=== PATIENT | female | born 1975 | race Caucasian/White ===

== ENCOUNTER 2017-08-11 14:25 | Observation (INO) ==
[~2017-08-11 14:25] MED LIST: KETAMINE 10 MG/ML ML IV PRN; MIDAZOLAM 2 MG/2 ML VIAL IV SCH; PROPOFOL 200 MG/20 ML VIAL IV SCH
[2017-08-11] MEDS ORDERED: LIDOCAINE JEL 2% 1 TUBE 30GM TOPICAL ONE (15:27)
[2017-08-11] MEDS ORDERED: MIDAZOLAM 2 MG/2 ML VIAL IV ONE ×2 (15:34→16:15)
[2017-08-11] MEDS ORDERED: HYDROmorphone 2 MG/ML SYRINGE IV ONE ×2 (15:35→16:05)
[2017-08-11] MEDS ORDERED: HYDROmorphone 2 MG/ML SYRINGE ONE (15:59)
[2017-08-11] MEDS ORDERED: MIDAZOLAM 5 MG/5 ML VIAL IV ONE (16:06)
[2017-08-11] MEDS ORDERED: MIDAZOLAM 2 MG/2 ML VIAL ONE (16:14)
[2017-08-11] MEDS ORDERED: NALOXONE HCL 0.4 MG/ML VIAL ONE ×2 (16:24→16:28)
[2017-08-11] MEDS ORDERED: ONDANSETRON 4 MG/2 ML VIAL IV ONE (16:29)
[2017-08-11] MEDS ORDERED: NALOXONE HCL 0.4 MG/ML VIAL IV ONE (16:30)
[2017-08-11] MEDS ORDERED: ONDANSETRON 4 MG/2 ML VIAL ONE (16:35)
[2017-08-11 17:11] LABS: Basophils # (Auto) 0 K/mcL (0.0-0.3); Basophils % (Auto) 0.2 % (0.0-2.0); Eosinophils # (Auto) 0 K/mcL (0.0-0.7); Eosinophils % (Auto) 0 % (0.0-7.0); Granulocytes % (Auto) 55.2 % (38.0-78.0); Lymphocytes % (Auto) 39.9 % (15.5-49.0); Mean Cell Volume 90.7 fL (80.0-100.0); Mean Corpuscular HGB Conc 33.9 g/dL (31.0-36.0); Mean Corpuscular Hemoglobin 30.8 pg (26.0-34.0); Monocytes # (Auto) 0.5 K/mcL (0.1-0.9); Monocytes % (Auto) 4.7 % (1.0-12.0); Platelet Count 209 K/mcL (140-440); RBC 4.63 M/mcL (4.00-5.20); Red Cell Distribution Width 13.9 % (11.5-14.5)
[2017-08-11 17:27] LABS: Creatine Kinase 68 IU/L (24-170); Creatine Kinase MB < 1.0 ng/ml (0-2.9); Myoglobin 35 ng/ml (25-58)
--- NOTE | 2017-08-11 17:28 | XRay Report ---
CLINICAL INFORMATION: Cardiorespiratory arrest COMPARISON: 01/10/2017 FINDINGS:The heart size, mediastinum and pulmonary vessels are unremarkable. The lungs are clear. There are no effusions. The bones and soft tissues are within normal limits. IMPRESSION: Normal chest. Interpreted and Authenticated by: Darien Haynes 08/11/17
[2017-08-11] MEDS ORDERED: METOCLOPRAMIDE 10 MG/2 ML VIAL IV ONE (17:30)
[2017-08-11] MEDS ORDERED: KETOROLAC 30 MG/ML VIAL IV PRN ×2 (17:32→19:26)
--- NOTE | 2017-08-11 17:52 | Internal Med History&Physical ---
Medical - H&P: HPI Patient information: Note initiated : 08/11/17 at 5:47 pm Patient: Heavenly Ken 42 y/o F admitted for respiratory depression after anesthesia. History of present illness: Ms. Ken is a 42 year old female with a complicated GI history, including childhood liver cancer, status post chemotherapy and radiation. She now has chronic diarrhea, and recently developed an anal fissure which was very painful. She underwent an outpatient colonoscopy today, with fissure dilation and bowel biopsies. She had significant pain both during and after the procedure, and received multiple doses of Dilaudid, as well as ketamine and Midazolam. While in the recovery area, she was noted to have respiratory depression, with significant drop in O2 saturation. A rapid response/code was called, and she was fairly quickly resuscitated with oxygen and IV naloxone. She is now admitted for continued monitoring of her respiratory status, as well as continued attempts to keep her pain controlled. She has had some intermittent nausea, which is usually caused by the pain meds. She says she does not tolerate narcotics very well. Zofran was not especially helpful for her nausea, so she was given Reglan, which did seem to help. Otherwise, she is not currently experiencing fever or chills, headaches or dizziness, chest pain or shortness of breath. She has mild chronic abdominal discomfort. She has passed some gas this evening, which was also uncomfortable. She did have some urine retention in the recovery room, and had an in and out cath done. Medical History Glaucoma (Acute) Hypertriglyceridemia (Acute) 05/15/16 discussed results of lab work, ways to improve each point, plan to check labs again in 3 months Viral bronchitis (Acute) Asthma (Chronic) Cancer (Chronic) Liver cancer as . No recurrence in 36 years. Diarrhea (Chronic) Herpes, genital (Chronic) Reactive airway disease (Chronic) 05/15/16 deteriorated. Plan to start Advair( she will call with dose she has at home) would like her to be on 250/50. 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 History of surgery of liver (Chronic) w/subsequent radiation and chemotherapy. History of vaginal hysterectomy (Chronic) for Dr. Jeff SHOEMAKER. path normal. ovaries present Hx of tonsillectomy (Chronic) Medication List acyclovir 400 mg PO BID fexofenadine (Bonny Allergy) 360 mg PO QDAY fluticasone 50 mcg/actuation 1 spray NS DAILY fluticasone furoate 200 mcg/actuation (Arnuity Ellipta) 200 mcg Inhalation QDAY tiotropium-olodaterol 2.5-2.5 mcg/actuation (Stiolto Respimat) 2 inhalations Inhalation QDAY Allergies/Adverse Reactions codeine Adverse Reaction - Nausea Family history: Adopted. Social History household members: spouse, other smoking status: Never smoker alcohol intake frequency: a few times a month substance use type: does not use Medical - H&P: Meds Home Medications Medication Instructions Recorded Confirmed Type Fluticasone Propionate [Flonase] 1 spray NS DAILY 05/31/16 06/06/17 History fexofenadine 180 mg tablet 360 mg PO QDAY tab 09/13/16 06/06/17 History fluticasone furoate 200 200 mcg INHALATION QDAY 10/21/16 06/06/17 History mcg/actuation blister powder for inhalation tiotropium 2.5 mcg-olodaterol 2.5 2 inh INHALATION QDAY 10/21/16 06/06/17 History mcg/actuation mist for inhalation acyclovir 400 mg tablet 400 mg PO BID #60 tab 07/02/17 Rx Allergies Allergy/AdvReac Type Severity Reaction Status Date / Time codeine AdvReac Severe Nausea Verified 06/06/17 13:24 Medical - H&P: Exam - Constitutional Vitals: Temp Pulse Resp BP Pulse Ox 97.9 F 73 17 134/67 99 08/11/17 15:30 08/11/17 15:30 08/11/17 15:30 08/11/17 15:30 08/11/17 15:30 On exam, she is a well-developed well-nourished female who appears quite fatigued. She is otherwise awake and alert, calm and cooperative. Head: Normocephalic, atraumatic. Eyes: PERRLA, EOMI, anicteric. Ears: TMs and canals are clear. Pharynx: Is clear. Mucosa appears normal. Teeth are in good repair. Neck: Is supple, without lymphadenopathy, JVD, thyromegaly, bruits. Cardiac exam: Shows regular rate and rhythm, with normal S1 and S2, without murmurs, rubs, gallops. Lungs: Are clear to auscultation, without rales, rhonchi, wheezes. Abdomen: Is soft, but she has vague diffuse tenderness, without guarding or rebound. Extremities: Show no cyanosis, clubbing, edema. Neurologic exam: Is grossly nonfocal Medical - H&P: Reslt - Labs CBC & Chem 7: 08/11/17 16:27 Labs: Short CBC 08/11/17 Range/Units 16:27 WBC 10.1 (4.5-11.0) K/mcL Hgb 14.3 (12.0-15.0) g/dL Hct 42.0 (36.0-48.0) % Plt Count 209 (140-440) K/mcL Cardiac Enzymes 08/11/17 08/11/17 Range/Units 16:27 16:27 Total Creatine Kinase 68 (24-170) IU/L CK-MB (CK-2) < 1.0 (0-2.9) ng/ml Troponin T < 0.01 (0-0.03) ng/ml Chemistry panel: Normal. Blood gas: PH 7.52, CO2 35, PO2 169, bicarb 28, 100% saturation, on 100% oxygen via mask. Chest x-ray: Normal. Medical - H&P: A/P (1) Narcotic-induced respiratory depression Current visit: Yes Status: Acute (2) Chronic rectal fissure Current visit: Yes Status: Acute (3) Reactive airway disease Current visit: No Status: Chronic - Narrative A/P Narrative: #1. Pulmonary. EDUARDA CONTRERAS was called on this patient earlier today, after her noticed that she did not seem to be breathing while in the recovery room, following her GI procedure today. Staff there noted that the patient had received medazepam and several doses of Dilaudid due to significant pain after her procedure. She was given oxygen via bag mask, and then given naloxone. She aroused fairly quickly. -Admit for observation, until we are sure her respiratory status is back to normal. Monitor on continuous pulse oximetry. -Judicious pain meds, as needed. -B and O suppositories as needed for rectal spasms. -Topical diltiazem cream as needed -Topical lidocaine jelly as needed. #2. GI. Patient presents with ongoing profuse diarrhea, in the setting of previous radiation colitis. GI is now suspicious of collagenous colitis. Biopsies are pending. Patient also has the rectal fissure, which was dilated today. #3. CODE STATUS: Full code. 4. DVT prophylaxis: The patient should be fully ambulatory by the morning. 5. History of asthma. As needed albuterol.
[2017-08-11] MEDS ORDERED: METOCLOPRAMIDE 10 MG/2 ML VIAL IV SCH (18:00)
[2017-08-11] MEDS ORDERED: LACTATED RINGERS 1,000 ML IV SCH (18:15)
[2017-08-11] MEDS: LACTATED RINGERS 1,000 ML IV SCH (19:05)
[2017-08-11] MEDS ORDERED: ONDANSETRON 4 MG/2 ML VIAL IV PRN (19:26)
[2017-08-11] MEDS ORDERED: NALOXONE HCL 0.4 MG/ML VIAL IV PRN (19:26)
[2017-08-11] MEDS ORDERED: ACETAMINOPHEN 325 MG TABLET PO PRN (19:26)
[2017-08-11] MEDS ORDERED: IBUPROFEN 600 MG TABLET PO PRN (19:26)
[2017-08-11] MEDS ORDERED: OPIUM/BELLADONNA ALKALOIDS 60 MG SUPP.RECT PR PRN (19:26)
[2017-08-11] MEDS ORDERED: ALBUTEROL SULFATE 2.5 MG/3 ML NEBULIZER NEB PRN (19:26)
[2017-08-11] MEDS ORDERED: CALCIUM CARBONATE 500 MG TAB.CHEW CHEWED PRN (19:26)
[2017-08-11] MEDS ORDERED: oxyCODONE/APAP 5/325MG TABLET PO PRN (19:26)
[2017-08-11] MEDS ORDERED: MAGNESIUM HYDROXIDE 30 ML ORAL.SUSP PO PRN (19:26)
[2017-08-11] MEDS: LIDOCAINE JEL 2% 1 TUBE 30GM TOPICAL SCH (20:24)
[2017-08-11] MEDS ORDERED: PATIENTS OWN MEDICATION 1 DOSE MISCELL TOPICAL SCH (21:00)
[2017-08-11] MEDS: BUDESONIDE 0.5 MG/2 ML AMPUL.NEB NEB SCH (21:20)
[2017-08-11] MEDS: DILTIAZEM 2% TOPICAL SCH (22:17)
[2017-08-11] MEDS: 0.9 % SODIUM CHLORIDE 10 ML SYRINGE IV SCH (22:18)
[2017-08-12] MEDS: LIDOCAINE JEL 2% 1 TUBE 30GM TOPICAL SCH ×2 (00:58→05:18)
[2017-08-12] MEDS: LACTATED RINGERS 1,000 ML IV SCH (02:29)
[2017-08-12] MEDS: 0.9 % SODIUM CHLORIDE 10 ML SYRINGE IV SCH (05:18)
[2017-08-12 06:07] LABS: Mean Corpuscular HGB Conc 33.7 g/dL (31.0-36.0); Mean Corpuscular Hemoglobin 30.7 pg (26.0-34.0); Platelet Count 150 K/mcL (140-440); RBC 3.97 M/mcL (4.00-5.20); Red Cell Distribution Width 13.8 % (11.5-14.5)
[2017-08-12 06:55] LABS: Band Neutrophils % 1 % (0-10); Basophils % (Manual) 1 % (0-2); Eosinophils % (Manual) 1 % (0-7); Lymphocytes % 17 % (15-49); Monocytes % (Manual) 4 % (1-12); Platelet Estimate NORMAL (NORMAL); RBC Morphology NORMAL (NORMAL); Segmented Neutrophils % 77 % (38-78)
[2017-08-12 07:03] LABS: ALT/SGPT 32 U/l (0-40); Albumin 4.1 gm/dL (3.2-5.2); Albumin/Globulin Ratio 1.9 (1.0-2.3); Alkaline Phosphatase 53 U/L (39-117); Bilirubin,Direct < 0.2 mg/dL (0.0-0.3); Blood Urea Nitrogen 11 mg/dl (6-20); Gamma Glutamyl Transpeptidase 69 U/L (5-36); Magnesium 2.5 mg/dL (1.6-2.5); Uric Acid 6.2 mg/dL (2.5-8.0)
[2017-08-12] MEDS: BUDESONIDE 0.5 MG/2 ML AMPUL.NEB NEB SCH (11:02)
[2017-08-12] MEDS: DILTIAZEM 2% TOPICAL SCH (11:41)
--- NOTE | 2017-08-12 13:03 | Surgical Pathology Report ---
HISTOLOGY SPECIMEN MICROSCOPIC DIAGNOSIS SPECIMEN A - SMALL BOWEL, TERMINAL ILEUM, BIOPSY: -- NO DIAGNOSTIC ALTERATIONS. -- NO ACUTE ENTERITIS, GRANULOMAS OR DYSPLASIA IDENTIFIED. SPECIMEN B - COLON, RANDOM, BIOPSY: -- NO DIAGNOSTIC ALTERATIONS. -- NO ACTIVE COLITIS, MICROSCOPIC COLITIS OR DYSPLASIA IDENTIFIED. SPECIMEN C - COLON, TRANSVERSE, POLYPECTOMY: -- HYPERPLASTIC POLYP. (RLF:djf) CLINICAL HISTORY Diarrhea; abdominal pain. PROCEDURAL IMPRESSION (?) Microscopic colitis; polyp; anal fissure. GROSS DESCRIPTION Specimen A: Received in formalin labeled terminal ileum biopsy, are four owens tissue fragments 0.3 to 0.6 cm. Entirely submitted in one cassette. Specimen B: Received in formalin labeled random colon biopsy, are multiple pink-owens tissue fragments 0.4 to 1.6 cm. Entirely submitted in one cassette. Specimen C: Received in formalin labeled transverse colon polyp, are two pink-owens tissue fragments 0.5 cm each. Entirely submitted in one cassette. (SCB:adj) Electronically Signed by: Valentina Paulino M.D.
--- NOTE | 2017-08-12 17:43 | Colonoscopy Procedure Note ---
Colonoscopy Procedure Notes - Procedure Information Patient information: Note initiated : 08/12/17 at 10:14 am Service Date: 08/11/17 Patient: Heavenly Ken 42 y/o F admitted on 08/11/17 for Colonoscopy. Pre-op diagnosis general: Diarrhea. Rectal pain. Post-op diagnosis general: Diarrhea. Query microscopic colitis. Anal fissure. Colonic polyps. Procedure narrative: The procedure, alternatives and risks were discussed with the patient and the patient's questions were answered. With intravenous sedation, the Olympus colonoscope was introduced into the rectum and advanced to the cecum. Ileocecal valve was identified, and intubated. Special effort was made to examine as much of the terminal ileum as possible. At least 30 to 40 cm of the terminal ileum were examined and were normal. Biopsy was taken from the ileal mucosa for histological examination. Random colon biopsies were taken throughout the colon to assess for microscopic colitis. Colonic polyps were seen in the transverse colon. The polyps were removed with a snare. They were retrieved for histological examination. Anal fissure was seen. The anal canal was in tight spasm and exquisitely tender. After sedation was administered, the anal sphincter was digitally dilated. The colon otherwise appeared normal. Assessment: Diarrhea. Query microscopic colitis. Anal fissure. History of radiation; radiation enteritis. Colonic polyps. Following the procedure, the patient complained of severe rectal pain and was given 2mg Dilaudid IV with 2mg of Versed.
--- NOTE | 2017-08-12 17:44 | Discharge Summary ---
Medical - DS: Prov Patient information: Note initiated : 08/12/17 at 10:31 am Patient: Heavenly Ken 42 y/o F admitted on 08/11/17 for respiratory depression after colonoscopy. Date of admission: 08/11/17 19:00 Discharge date: 08/12/17 Primary care physician: Romero Ba GI doctor, Dr. Magan Burch Admitting clinician: Erica Mathews Consults: Dr. Magan Burch, GI Attending physician on discharge: Erica Mathews Medical - DS: Meds - Discharge Medications Prescriptions: Ibuprofen 800 mg PO TIDP PRN #30 tablet PRN Reason: Pain Opium/Belladonna Alkaloids [B & O] 30 mg VA Q4HP PRN #10 PRN Reason: Bladder Spasms Active and Home Medications: Discharge medications: Lidocaine jelly, apply to the anal canal, as needed pain every 6 hours Belladonna suppository, per rectum, as needed rectal spasms every 4 hours Diltiazem cream, apply to the rectum, as needed spasms Tylenol 650 mg every 6 hours as needed pain Ibuprofen 800 mg p.o. 3 times daily as needed rectal pain Tums every 4 hours as needed Arnuity Ellipta inhaler 200 mcg daily (fluticasone) Stiolto Respimat Restasis tiotropium-olodaterol) 2.5/2.52 inhalations daily Peyton acyclovir 400 mg p.o. twice daily Bonny 360 mg daily Flonase 1 spray per nostrils daily Previous home Medications Fluticasone Propionate [Flonase] 1 spray NS DAILY 05/31/16 [History Confirmed Last Taken Unknown] fexofenadine 180 mg tablet 360 mg PO QDAY tab 09/13/16 [History Confirmed 06/06 Last Taken Unknown] fluticasone furoate 200 mcg/actuation blister powder for inhalation 200 mcg INHALATION QDAY 10/21/16 [History Confirmed 06/06/17 Last Taken Unknown] tiotropium 2.5 mcg-olodaterol 2.5 mcg/actuation mist for inhalation 2 inh INHALATION QDAY 10/21/16 [History Confirmed 06/06/17 Last Taken Unknown] acyclovir 400 mg tablet 400 mg PO BID #60 tab 07/02/17 [Rx Last Taken Unknown] Medical - DS: Hosp Hospital course: Mr. Ken is a 42 year old F August 11, 2017: History of present illness: Ms. Ken is a 42 year old female with a complicated GI history, including childhood liver cancer, status post chemotherapy and radiation. She now has chronic diarrhea, and recently developed an anal fissure which was very painful. She underwent an outpatient colonoscopy today, with fissure dilation and bowel biopsies. She had significant pain both during and after the procedure, and received multiple doses of Dilaudid, as well as ketamine and Midazolam. While in the recovery area, she was noted to have respiratory depression, with significant drop in O2 saturation. A rapid response/code was called, and she was fairly quickly resuscitated with oxygen and IV naloxone. She is now admitted for continued monitoring of her respiratory status, as well as continued attempts to keep her pain controlled. She has had some intermittent nausea, which is usually caused by the pain meds. She says she does not tolerate narcotics very well. Zofran was not especially helpful for her nausea, so she was given Reglan, which did seem to help. Otherwise, she is not currently experiencing fever or chills, headaches or dizziness, chest pain or shortness of breath. She has mild chronic abdominal discomfort. She has passed some gas this evening, which was also uncomfortable. She did have some urine retention in the recovery room, and had an in and out cath done. August 11, colonoscopy note: Pre-op diagnosis general: Diarrhea. Rectal pain. Post-op diagnosis general: Diarrhea. Query microscopic colitis. Anal fissure. Colonic polyps. Procedure narrative: Special effort was made to examine as much of the terminal ileum as possible. At least 30 to 40 cm of the terminal ileum were examined and were normal. Biopsy was taken from the ileal mucosa for histological examination. Random colon biopsies were taken throughout the colon to assess for microscopic colitis. Colonic polyps were seen in the transverse colon. The polyps were removed with a snare. They were retrieved for histological examination. Anal fissure was seen. The anal canal was in tight spasm and exquisitely tender. After sedation was administered, the anal sphincter was digitally dilated. The colon otherwise appeared normal. Assessment: Diarrhea. Query microscopic colitis. Anal fissure. History of radiation; radiation enteritis. Colonic polyps. Following the procedure, the patient complained of severe rectal pain and was given 2mg Dilaudid IV with 2mg of Versed. August 12: Hospital course: The patient was admitted last evening for close monitoring, as noted above. She did fine overnight, once her nausea settled down. She has not yet had a bowel movement. She had rectal pain last evening, which resolved after IV Toradol. Today, she says she is feeling much better. Nausea has resolved. She has only minor abdominal discomfort. Otherwise, she denies fever chills, chest pain or shortness of breath, abdominal pain, nausea or vomiting, diarrhea, dysuria. Postvoid residual scans of her bladder were normal. Exam: Today, patient is awake and alert, and in no acute distress. Vital signs are within normal limits. Neck is supple without lymphadenopathy or JVD. Cardiac exam shows regular rate and rhythm. Lungs are clear to auscultation. Abdomen is soft and nontender. Extremities show no edema. Assessment and plan: #1. Pulmonary. EDUARDA CONTRERAS was called on this patient earlier yesterday after she developed respiratory depression after receiving IV pain meds and anxiolytics. O2 saturation improved rapidly after being given supplemental oxygen and naloxone. She has done well overnight. O2 saturations remained normal overnight. #2. GI. Patient presents with ongoing profuse diarrhea, in the setting of previous radiation colitis. GI is now suspicious of collagenous colitis. Biopsies are pending. Patient also has the rectal fissure, which was dilated yesterday. -Judicious pain meds, as needed. -B and O suppositories as needed for rectal spasms. -Topical diltiazem cream as needed -Topical lidocaine jelly as needed. #3. CODE STATUS: Full code. 4. DVT prophylaxis: The patient is fully ambulatory . 5. History of asthma. As needed albuterol. Resume home meds. Resume supplemental vitamin D and B12 for reported history of deficiency. Patient will return home with her today. She will follow-up with Dr. Burch as scheduled. Discharge diagnosis: Narcotic associated respiratory depression, resolved. - Time Spent with Patient Total time spent providing and/or coordinating discharge services: Less than 30 minutes Medical - DS: Exam - Constitutional Vitals: Vital Signs Temp Pulse Pulse Resp BP BP Pulse Ox 08/12/17 08:00 98.1 F 12 107/72 96 08/12/17 07:49 78 95 08/12/17 05:20 97 08/12/17 04:00 98.2 F 71 12 97/61 98 08/11/17 23:35 99 08/11/17 22:38 97.0 F 83 12 123/80 99 08/11/17 21:21 99 08/11/17 20:00 96.8 F L 97 H 12 121/68 99 08/11/17 19:26 98 08/11/17 19:05 96.8 F L 97 H 12 121/68 99 08/11/17 19:00 97.9 F 88 16 122/67 98 08/11/17 17:00 89 16 128/68 99 08/11/17 16:15 97.9 F 75 17 134/67 97 08/11/17 16:00 97.9 F 73 17 132/65 98 08/11/17 15:30 97.9 F 73 17 134/67 99 08/11/17 15:20 82 17 113/62 99 08/11/17 14:53 97.9 F 73 16 124/79 98 08/11/17 14:43 97.9 F 73 16 124/79 98 Intake and Output 08/11/17 08/12/17 08/12/17 21:59 05:59 13:59 Intake Total 60 / 60 745 / 745 Output Total 780 / 780 Balance 60 / 60 -35 / -35 Intake: IV 555 / 555 Lactated Ringers 1,000 ml 555 / 555 @ 75 mls/hr IV .[id number] [facility] Rx#:[id number] Oral 60 / 60 190 / 190 Output: Void Amount 750 / 750 Emesis Other: # Voids 3 1 # Bowel Movements 1 Weight 143 lb Medical - DS: Data Labs on day of discharge: Labs from last 24 hours 08/12/17 08/12/17 08/11/17 04:19 04:19 16:27 WBC 9.2 RBC 3.97 L Hgb 12.2 Hct 36.1 POC Hct MCV 91.0 MCH 30.7 MCHC 33.7 RDW 13.8 Plt Count 150 MPV 8.7 Gran % Lymph % (Auto) [place] % (Auto) Eos % (Auto) Baso % (Auto) Gran # Lymph # (Auto) [place] # (Auto) Eos # (Auto) Baso # (Auto) Total Counted 200 Seg Neutrophils % 77 Band Neutrophils % 1 Lymphocytes % 17 Monocytes % (Manual) 4 Eosinophils % (Manual) 1 Basophils % (Manual) 1 Reactive Lymphocytes 1 Platelet Estimate Normal RBC Morphology Normal POC Sodium Sodium 138 POC Potassium Potassium 4.9 POC Chloride Chloride 102 Carbon Dioxide 27 POC Total CO2 Anion Gap 9.0 POC BUN BUN 11 Creatinine 0.9 POC Creatinine GFR Calculation 78 Glucose 106 H POC Glucose Uric Acid 6.2 Calcium 9.5 POC WB Ioniz Calcium Phosphorus 3.9 Magnesium 2.5 Total Bilirubin 0.5 Direct Bilirubin < 0.2 GGT 69 H AST 24 ALT 32 Alkaline Phosphatase 53 Lactate Dehydrogenase 152 Total Creatine Kinase CK-MB (CK-2) Myoglobin Troponin T < 0.01 Total Protein 6.3 Albumin 4.1 Globulin 2.2 Albumin/Globulin Ratio 1.9 Triglycerides 156 H 08/11/17 08/11/17 16:27 16:27 WBC 10.1 RBC 4.63 Hgb 14.3 Hct 42.0 POC Hct 44.0 MCV 90.7 MCH 30.8 MCHC 33.9 RDW 13.9 Plt Count 209 MPV 8.5 Gran % 55.2 Lymph % (Auto) 39.9 [place] % (Auto) 4.7 Eos % (Auto) 0 Baso % (Auto) 0.2 Gran # 5.6 Lymph # (Auto) 4.0 [place] # (Auto) 0.5 Eos # (Auto) 0 Baso # (Auto) 0 Total Counted Seg Neutrophils % Band Neutrophils % Lymphocytes % Monocytes % (Manual) Eosinophils % (Manual) Basophils % (Manual) Reactive Lymphocytes Platelet Estimate RBC Morphology POC Sodium 140 Sodium POC Potassium 3.4 Potassium POC Chloride 101 Chloride Carbon Dioxide POC Total CO2 28 Anion Gap POC BUN 11 BUN Creatinine POC Creatinine 1.0 GFR Calculation Glucose POC Glucose 139 H Uric Acid Calcium POC WB Ioniz Calcium 1.25 Phosphorus Magnesium Total Bilirubin Direct Bilirubin GGT AST ALT Alkaline Phosphatase Lactate Dehydrogenase Total Creatine Kinase 68 CK-MB (CK-2) < 1.0 Myoglobin 35 Troponin T Total Protein Albumin Globulin Albumin/Globulin Ratio Triglycerides Chemistry panel: Normal. Blood gas: PH 7.52, CO2 35, PO2 169, bicarb 28, 100% saturation, on 100% oxygen via mask. Chest x-ray: Normal. EKG showed sinus tachycardia at a rate of 103, without obvious acute ST-T changes. Medical - DS: A/P - Patient/Caregiver Discharge Instructions Activity: increase activity as tolerated Diet: Low Fiber (Resume previous low residue diet.) Additional Instructions: 1. Rectal pain due to fissure. Continue to follow the diet prescribed by Dr. Burch. Continue topical diltiazem, lidocaine, B and O suppositories, as needed for pain and/or spasm. Prescriptions: Ibuprofen 800 mg PO TIDP PRN #30 tablet PRN Reason: Pain Opium/Belladonna Alkaloids [B & O] 30 mg VA Q4HP PRN #10 PRN Reason: Bladder Spasms - Problem Maintenance (1) Narcotic-induced respiratory depression Status: Acute (2) Chronic rectal fissure Status: Acute (3) Reactive airway disease Status: Chronic Qualifiers: Asthma severity: mild persistent - Follow up Plan Follow up with: Heavenly Arias ARNP [Nurse Practitioner] - 08/13/17 4:15 pm Disposition: Home, Self-Care Prognosis: Good Rehab Potential: Good I certify that the patient requires SNF services: No Overall status at discharge: patient is back to baseline Medical - DS: Qual - VTE Deep Vein Thrombosis/Pulmonary Embolism Present on Admission: No
== END 2017-08-12 12:25 | disposition home or self-care (01) ==
LOC: MEDSUR 14:25 → SSSU 14:25 → MEDSUR 19:00
PROVIDERS: ADMIT Internal Medicine; ATTEND Internal Medicine
PROC: COLONBX (2017-08-11 15:30)

== ENCOUNTER 2018-08-13 18:59 | Inpatient (IN) ==
[2018-08-13] MEDS ORDERED: LACTATED RINGERS 1,000 ML IV ONE (19:16)
[2018-08-13] MEDS ORDERED: ONDANSETRON 4 MG/2 ML VIAL IV ONE (19:20)
--- NOTE | 2018-08-13 19:22 | Emergency Department Note ---
Abdominal Pain HPI - General Chief Complaint: Abdominal Pain Stated Complaint: abdominal cramping Time Seen by Provider: 08/13/18 19:13 Source: patient Mode of arrival: ambulatory Limitations: no limitations - History of Present Illness HPI Narrative: This patient has had previous small bowel obstructions and feel like she might be starting to get another one. Since 2:00 she has been developing some abdominal discomfort and is not passing gas. Has not developed nausea yet. She had liver cancer and surgery at 8 weeks of age. She has had several small bowel obstructions in the past. - Related Data Home Medications Medication Instructions Recorded Confirmed Fluticasone Propionate [Flonase] 1 spray NS DAILY 05/31/16 08/14/18 fexofenadine 180 mg tablet 360 mg PO QDAY tab 09/13/16 08/14/18 fluticasone furoate 200 200 mcg INHALATION QDAY 10/21/16 08/14/18 mcg/actuation blister powder for inhalation tiotropium 2.5 mcg-olodaterol 2.5 2 inh INHALATION QDAY 10/21/16 08/14/18 mcg/actuation mist for inhalation cholecalciferol (vitamin D3) 5,000 5,000 unit PO QDAY 02/20/18 08/14/18 unit capsule rifaximin 200 mg tablet 200 mg PO TID 02/20/18 08/14/18 vitamin B complex tablet 1 tab PO QDAY 02/20/18 08/14/18 Previous Rx's Medication Instructions Recorded acyclovir 400 mg tablet 400 mg PO BID #60 tab 07/02/17 Acetaminophen [Tylenol] 650 mg PO Q6HP PRN tab 08/12/17 Calcium Carbonate [Tums] 1,000 mg CHEWED Q4HP PRN 08/12/17 Ibuprofen 800 mg PO TIDP PRN #30 tab 08/12/17 Opium/Belladonna Alkaloids [B & O] 30 mg [place] Q4HP PRN #10 08/12/17 Allergies Allergy/AdvReac Type Severity Reaction Status Date / Time codeine AdvReac Mild Nausea/Vomi Verified 08/14/18 06:11 ting Review of Systems All systems ED: reviewed and negative except as stated. Abdominal Pain PMH - Past Medical History Medical history: Reports: liver disease (Liver cancer at 8 weeks of age with abdominal surgery.), other (Previous small bowel obstructions.) - Social History Smoking status: Never smoker Alcohol use: Reports: Rarely Drug use: Reports: none Physical Exam Limitations: no limitations General appearance: alert Head: atraumatic Eye: Present: normal appearance ENT: normal exam Neck: Present: normal inspection Chest: Present: normal inspection Respiratory: Present: normal lung sounds bilaterally Cardiovascular: Present: regular rate, normal rhythm, normal heart sounds Abdominal: Present: soft, distention, tenderness, hyperactive bowel sounds. Absent: guarding, rebound, rigidity Neurological: Present: alert Psychiatric: Present: normal affect Skin: Present: warm, dry, intact Course Vital Signs Temperature 96.8 F L 08/13/18 18:59 Pulse Rate 105 H 08/13/18 18:59 Respiratory Rate 18 08/13/18 18:59 Blood Pressure 151/80 08/13/18 18:59 Pulse Oximetry (%) 99 08/13/18 18:59 Temperature 98 F 08/14/18 07:06 Pulse Rate 90 08/14/18 03:49 Respiratory Rate 16 08/14/18 07:06 Blood Pressure 142/87 08/14/18 07:06 Pulse Oximetry (%) 97 08/14/18 07:06 Abdominal Pain - MDM Narrative Medical decision making narrative: Patient CT scan is consistent with a partial small bowel obstruction. She will be admitted to the hospital by Dr. Westfall. - Lab Data Lab results reviewed: Yes I reviewed the patient's lab results. Result diagrams: 08/14/18 03:55 08/14/18 03:55 Lab Results 08/13/18 08/13/18 Range/Units 19:16 19:16 WBC 6.8 (4.5-11.0) K/mcL RBC 4.75 (4.00-5.20) M/mcL Hgb 14.5 (12.0-15.0) g/dL Hct 43.1 (36.0-48.0) % MCV 90.7 (80.0-100.0) fL MCH 30.6 (26.0-34.0) pg MCHC 33.7 (31.0-36.0) g/dL RDW 15.4 H (11.5-14.5) % Plt Count 201 (140-440) K/mcL MPV 8.3 (7.4-10.4) fL Gran % 69.1 (38.0-78.0) % Lymph % (Auto) 25.7 (15.5-49.0) % [place] % (Auto) 4.7 (1.0-12.0) % Eos % (Auto) 0 (0.0-7.0) % Baso % (Auto) 0.5 (0.0-2.0) % Gran # 4.7 (1.8-8.0) K/mcL Lymph # (Auto) 1.7 (1.5-4.8) K/mcL [place] # (Auto) 0.3 (0.1-0.9) K/mcL Eos # (Auto) 0 (0.0-0.7) K/mcL Baso # (Auto) 0 (0.0-0.3) K/mcL Sodium 140 (133-145) mmol/L Potassium 4.0 (3.3-5.1) mmol/L Chloride 98 (96-108) mmol/L Carbon Dioxide 28 (22-30) mmol/L Anion Gap 14.0 (8-16) BUN 13 (6-20) mg/dl Creatinine 1.1 (0.6-1.1) mg/dl GFR Calculation 61 Glucose 139 H (70-105) mg/dL Calcium 11.4 H (8.6-10.4) mg/dl Total Bilirubin 0.4 (0.0-1.0) mg/dL AST 33 (0-37) U/l ALT 46 H (0-40) U/l Alkaline Phosphatase 70 (39-117) U/L Total Protein 7.7 (5.9-8.4) gm/dL Albumin 4.9 (3.2-5.2) gm/dL Globulin 2.8 (2.2-3.7) gm/dL Albumin/Globulin Ratio 1.8 (1.0-2.3) - Radiology Data Radiology results reviewed: Yes I reviewed the patient's radiology results. Disposition Pt seen by ATMOSPHERIC SCIENTIST/PA only: No Clinical Impression: Small bowel obstruction Disposition: Xfer As Inpt ([facility]) Condition: Fair
[2018-08-13] MEDS: HYDROmorphone 2 MG/ML VIAL IV PRN ×5 (19:30→22:50)
[2018-08-13] MEDS ORDERED: PROMETHAZINE 25 MG/ML VIAL IV ONE (20:26)
[2018-08-13 20:28] LABS: Basophils # (Auto) 0 K/mcL (0.0-0.3); Basophils % (Auto) 0.5 % (0.0-2.0); Eosinophils # (Auto) 0 K/mcL (0.0-0.7); Eosinophils % (Auto) 0 % (0.0-7.0); Granulocytes % (Auto) 69.1 % (38.0-78.0); Lymphocytes # (Auto) 1.7 K/mcL (1.5-4.8); Lymphocytes % (Auto) 25.7 % (15.5-49.0); Mean Cell Volume 90.7 fL (80.0-100.0); Mean Corpuscular HGB Conc 33.7 g/dL (31.0-36.0); Mean Corpuscular Hemoglobin 30.6 pg (26.0-34.0); Monocytes # (Auto) 0.3 K/mcL (0.1-0.9); Monocytes % (Auto) 4.7 % (1.0-12.0); Platelet Count 201 K/mcL (140-440); RBC 4.75 M/mcL (4.00-5.20); Red Cell Distribution Width 15.4 % (11.5-14.5)
[2018-08-13 20:46] LABS: ALT/SGPT 46 U/l (0-40); Albumin 4.9 gm/dL (3.2-5.2); Albumin/Globulin Ratio 1.8 (1.0-2.3); Alkaline Phosphatase 70 U/L (39-117); Blood Urea Nitrogen 13 mg/dl (6-20)
[2018-08-13] MEDS ORDERED: ONDANSETRON 4 MG/2 ML VIAL ONE (22:23)
[2018-08-13] MEDS ORDERED: PROMETHAZINE 25 MG/ML VIAL ONE (22:47)
[2018-08-13] MEDS: LACTATED RINGERS 1,000 ML IV SCH (22:50)
[2018-08-14] MEDS ORDERED: PROMETHAZINE 25 MG/ML VIAL ONE (00:13)
[2018-08-14] MEDS ORDERED: METOCLOPRAMIDE 10 MG/2 ML VIAL ONE ×2 (00:23→05:25)
[2018-08-14] MEDS ORDERED: ONDANSETRON 4 MG/2 ML VIAL IV ONE (00:33)
[2018-08-14] MEDS ORDERED: PROMETHAZINE 25 MG/ML VIAL IV ONE (00:33)
[2018-08-14] MEDS ORDERED: IOPAMIDOL 100 ML BOTTLE IV ONE (00:45)
[2018-08-14] MEDS: METOCLOPRAMIDE 10 MG/2 ML VIAL IV SCH ×4 (01:07→18:09)
[2018-08-14] MEDS: LACTATED RINGERS 1,000 ML IV SCH ×4 (02:33→22:02)
[2018-08-14] MEDS: ONDANSETRON 4 MG/2 ML VIAL IV PRN ×3 (04:01→18:20)
[2018-08-14] MEDS ORDERED: HYDROmorphone 2 MG/ML VIAL ONE (04:05)
[2018-08-14 05:18] LABS: Basophils # (Auto) 0 K/mcL (0.0-0.3); Basophils % (Auto) 0.3 % (0.0-2.0); Eosinophils # (Auto) 0 K/mcL (0.0-0.7); Eosinophils % (Auto) 0 % (0.0-7.0); Granulocytes % (Auto) 84.3 % (38.0-78.0); Lymphocytes % (Auto) 11.5 % (15.5-49.0); Mean Cell Volume 90.8 fL (80.0-100.0); Mean Corpuscular HGB Conc 34.1 g/dL (31.0-36.0); Monocytes # (Auto) 0.3 K/mcL (0.1-0.9); Monocytes % (Auto) 3.9 % (1.0-12.0); Platelet Count 152 K/mcL (140-440); RBC 3.92 M/mcL (4.00-5.20); Red Cell Distribution Width 14.7 % (11.5-14.5)
--- NOTE | 2018-08-14 05:23 | XRay Report ---
CLINICAL INFORMATION: Abdominal pain COMPARISON: None. FINDINGS: The stool gas pattern is unremarkable. There is no free air, soft tissue mass, organomegaly or pathologic calcification. IMPRESSION: Normal abdomen Interpreted and Authenticated by: Darien Haynes 08/14/18
[2018-08-14 05:30] LABS: ALT/SGPT 37 U/l (0-40); Albumin 3.9 gm/dL (3.2-5.2); Albumin/Globulin Ratio 1.9 (1.0-2.3); Alkaline Phosphatase 54 U/L (39-117); Bilirubin,Direct < 0.2 mg/dL (0.0-0.3); Blood Urea Nitrogen 10 mg/dl (6-20); Gamma Glutamyl Transpeptidase 300 U/L (5-36); Uric Acid 5.6 mg/dL (2.5-8.0)
--- NOTE | 2018-08-14 05:58 | Cat Scan Report ---
CLINICAL INFORMATION: Abdominal pain and distention COMPARISON: 05/22/[address] TECHNIQUE: Following enteric contrast, 80 cc of Isovue-300 were injected intravenously, and 60 seconds later, 0.625 mm helical slices were obtained from the mid heart through the subtrochanteric regions. Following reconstruction, 2.5 mm sagittal, coronal and axial reformatted images were processed and reviewed at bone, lung and soft tissue windows. Five minutes later, 0.625 mm helical slices were obtained from the mid heart through the kidneys and viewed at soft tissue windows.The exam was performed using radiation dose optimization techniques including, but not limited to, automated exposure control, adjustment of the mA and/or kV according to patient size and use of iterative reconstruction technique. FINDINGS: Lung bases show no abnormality - no effusion. The visualized heart is normal. Images through the abdomen show moderate hepatomegaly with a vertical dimension of 17.5 cm at mid clavicular line. The liver has increased in size slowly since a 05/15/[address] That time, the vertical dimension was 16.5 cm. No focal hepatic lesions. Gallbladder is normal in size with a 5 mm stone layering dependently within the gallbladder. Intrahepatic and common bile ducts are normal caliber: CBD is 5 mm.10 mm simple cyst inferior pole left kidney again noted. Remaining kidneys, adrenal glands, spleen, pancreas and aorta including aortic branches are normal. Images through the pelvis show urinary bladder to be normal. Hysterectomy changes noted. Region of both ovaries are grossly normal. The right lower quadrant, there are multiple loops of mildly dilated distal jejunum with abrupt narrowing in the mid ileum ostensibly related to either a stricture or adhesions. The distal ileum is diminutive, but the colon is normal caliber with a normal amount of stool.. Findings compatible with mild partial small bowel obstruction. Small amount of mesenteric free fluid seen in the region of dilated small bowel. No free air or adenopathy. Bone windows show no osseous abnormality IMPRESSION: 1. Mild partial small bowel obstruction of the distal jejunum ostensibly related to adhesions or stricture. A small amount of adjacent mesenteric fluid suggests early third spacing. 2. Moderate hepatomegaly with diffuse fatty change. Liver has slowly enlarged since a [address] Findings are compatible with a chronic primary hepatocellular process such as hepatitis, developing cirrhosis etc. Consider: Ultrasound-guided biopsy 3. 5 mm stone in the gallbladder Interpreted and Authenticated by: Darien Haynes 08/14/18
[2018-08-14] MEDS: HYDROmorphone 2 MG/ML VIAL IV PRN ×5 (06:39→20:11)
[2018-08-14] MEDS: PROMETHAZINE 25 MG/ML VIAL IV PRN ×4 (06:42→20:11)
--- NOTE | 2018-08-14 07:08 | XRay Report ---
CLINICAL INFORMATION: NG placement. Partial small bowel obstruction COMPARISON: 08/13/2018 FINDINGS: NG tip is in the mid gastric body with the sidehole near the GE junction. Stool gas pattern is unremarkable - the small bowel obstruction pattern, seen on CT, is not evident on plain film. There is no free air, organomegaly, pathologic calcification or soft tissue mass. CT contrast fills the urinary bladder which is unremarkable IMPRESSION: NG sidehole to the GE junction. Suggest advancing tube 8 cm. Interpreted and Authenticated by: Darien Haynes 08/14/18
[2018-08-14] MEDS ORDERED: DIATRIZOATE MEGLU/DIATRIZO SOD 30 ML BOTTLE PO ONE (09:59)
--- NOTE | 2018-08-14 10:20 | XRay Report ---
CLINICAL INFORMATION: PARTIAL SMALL BOWEL OBSTRUCTION COMPARISON: Abdomen pelvic CT from 08/13/2018. TECHNIQUE: On forging press setter up film, approximately 300 cc of water-soluble contrast was administered through an indwelling NG tube and serial imaging was obtained of the abdomen and pelvis through 40 minutes. Spot compression views were also obtained at fluoroscopy by the radiologist FINDINGS: The stomach, duodenum, jejunum and ileum are normal in contour and caliber. No evidence of small bowel obstruction Small bowel transit time is approximately 30 minutes. IMPRESSION: Negative exam - normal small bowel follow-through. Small bowel transit time 30 minutes Interpreted and Authenticated by: Darien Haynes 08/14/18
--- NOTE | 2018-08-14 15:09 | General Surg History&Physical ---
History of Present Illness Patient information: Note initiated : 08/14/18 at 3:09 pm Service Date, if different from initiated Date: [] Patient: Heavenly Ken a 43 y/o F admitted on 08/13/18 for Abdominal Cramping /Small Bowel Obstruction. Chief Complaint: [Crampy abdominal pain] HPI: Ms. Ken is a 43 year old F admitted with severe abdominal pain and suspected partial small bowel obstruction. The patient has a history of neuroblastoma as an and underwent a partial liver resection followed by radiation and chemotherapy as an . Since that time, she has had intermittent management, crampy abdominal pain and distention and has been treated for partial small bowel obstructions. She has not been operated on for this since she was an . She normally has 6-12 liquid stools per day, but went over 24 hours without stool or gas passing. She also had abdominal distention. She had a CT of the abdomen which suggested either severe ileus or partial small bowel obstruction. She carries a diagnosis of radiation enteritis , which is thought to be the underlying causes of her problem. She has been followed closely by GI for this. Review of Systems - Constitutional no fever(s), no weight loss - Cardiovascular dyspnea on exertion - Respiratory dyspnea on exertion, wheezing - Gastrointestinal abdominal pain, cramping, diarrhea, nausea - Genitourinary Genitourinary: no difficulty urinating - Musculoskeletal myalgias, no arthralgias - Integumentary no bleeding lesions, no new lesions, no pruritus, no rash - Neurological no confusion, no dizziness, no tremor(s) - Psychiatric no anxiety, no depression - Endocrine no excessive sweating, no fatigue, no palpitations - Hematologic/Lymphatic no easy bleeding, no easy bruising, no lymphadenopathy - Allergic/Immunologic no tongue swelling, no throat swelling, no uticaria, no wheezing, no lip swelling Past History Past medical history: Neuroblastoma of infancy. Radiation enteritis. Reactive airway disease. Gallstone disease Past surgical history: Partial hepatectomy as an infant Vaginal hysterectomy. Reconstructive surgery, left hand Past family history: Patient is adopted and family unknown Past social history: Never smoker. Occasional alcohol. Denies drug use. Employed Medications and Allergies Home Medications Medication Instructions Recorded Confirmed Type Fluticasone Propionate [Flonase] 1 spray NS DAILY 05/31/16 08/14/18 History fexofenadine 180 mg tablet 360 mg PO QDAY tab 09/13/16 08/14/18 History fluticasone furoate 200 200 mcg INHALATION QDAY 10/21/16 08/14/18 History mcg/actuation blister powder for inhalation tiotropium 2.5 mcg-olodaterol 2.5 2 inh INHALATION QDAY 10/21/16 08/14/18 History mcg/actuation mist for inhalation acyclovir 400 mg tablet 400 mg PO BID #60 tab 07/02/17 08/14/18 Rx Acetaminophen [Tylenol] 650 mg PO Q6HP PRN tab 08/12/17 08/14/18 Rx Calcium Carbonate [Tums] 1,000 mg CHEWED Q4HP PRN 08/12/17 08/14/18 Rx Ibuprofen 800 mg PO TIDP PRN #30 tab 08/12/17 08/14/18 Rx Opium/Belladonna Alkaloids [B & O] 30 mg [place] Q4HP PRN #10 08/12/17 08/14/18 Rx cholecalciferol (vitamin D3) 5,000 5,000 unit PO QDAY 02/20/18 08/14/18 History unit capsule rifaximin 200 mg tablet 200 mg PO TID 02/20/18 08/14/18 History vitamin B complex tablet 1 tab PO QDAY 02/20/18 08/14/18 History Allergies Allergy/AdvReac Type Severity Reaction Status Date / Time codeine AdvReac Mild Nausea/Vomi Verified 08/14/18 06:11 ting Exam Temp Pulse Resp BP Pulse Ox 98 F 90 16 112/71 94 08/14/18 11:33 08/14/18 03:49 08/14/18 11:33 08/14/18 11:33 08/14/18 11:33 - General physical appearance well developed, well nourished, no distress - Eyes PERRL, normal ocular movement - ENT normal pinna, normal nares, normal mucosa, no hearing loss, no congestion - Head Head exam IM: Present: atraumatic, normocephalic - Neck no masses, no bruits, trachea midline, no lymphadectomy, no venous distension - Cardiovascular Cardiovascular exam IM: Present: normal rate and rhythm - Respiratory normal expansion, normal respiratory effort, clear to percussion, clear to auscultation - Abdomen Abdomen: Present: soft, tender (mild tenderness diffusely; active bowel sounds; moderate distention; healed surgical incisions), bowel sounds Hernia: Present: none - Genitourinary Present: normal external genitalia - Integumentary Present: no rash, no growths, no abnormal pigmentation - Neurologic Present: normal coordination, normal sensation - Musculoskeletal Present: normal gait, normal posture - Psychiatric Present: oriented to time, oriented to person, oriented to place, speech is normal, memory intact Assessment and Plan (1) Adynamic ileus Patient will have a small bowel follow-through completed . Nasogastric suction will be continued. Milk of magnesia will be given if small bowel follow-through is normal. Reglan 10 mg IV every 6 hours Status: Acute (2) Reactive airway disease Continue home medications Status: Chronic Qualifiers: Asthma severity: mild persistent (3) Partial small bowel obstruction Status: Resolved
[2018-08-14] MEDS: MAGNESIUM HYDROXIDE 30 ML ORAL.SUSP PO SCH ×3 (15:45→23:59)
[2018-08-14] MEDS ORDERED: BENZOCAINE 1 SPRAY BOTTLE TOPICAL ONE (18:31)
[2018-08-15] MEDS: HYDROmorphone 2 MG/ML VIAL IV PRN ×2 (00:05→02:34)
[2018-08-15] MEDS: ONDANSETRON 4 MG/2 ML VIAL IV PRN (00:05)
[2018-08-15] MEDS: METOCLOPRAMIDE 10 MG/2 ML VIAL IV SCH ×3 (00:35→12:21)
[2018-08-15] MEDS: PROMETHAZINE 25 MG/ML VIAL IV PRN (02:34)
[2018-08-15] MEDS: LACTATED RINGERS 1,000 ML IV SCH ×2 (04:21→10:31)
[2018-08-15] MEDS ORDERED: Tiotropium Br/Olodaterol Hcl [Stiolto Respimat] Inhaler INH SCH (09:00)
[2018-08-15] MEDS ORDERED: FLUTICASONE PROPIONATE SPRAY.NAS NS SCH (09:00)
--- NOTE | 2018-08-15 09:16 | XRay Report ---
HISTORY: Abdominal pain and cramping and small bowel obstruction FINDINGS: There is oral contrast within the colon following the small bowel follow-through performed yesterday. The colon is nondilated but there are multiple air-fluid levels. Stomach and small intestine are decompressed. There is no residual contrast in the small bowel. No free intra-abdominal air is present. IMPRESSION: Normal exam Interpreted and Authenticated by: Farooq Guevara 08/15/18
[2018-08-15] MEDS ORDERED: ACETAMINOPHEN 325 MG TABLET PO PRN (09:31)
--- NOTE | 2018-08-15 09:42 | General Surgery Progress Note ---
Surgical - Auxillary Note - Subjective Patient Information: Note initiated : 08/15/18 at 9:37 am Service Date, if different from initiated Date: [] Patient: Heavenly Ken 43 y/o F admitted on 08/13/18 for Abdominal Cramping /Small Bowel Obstruction. Chief Complaint: [] Ms. Ken is just out of the shower and states she is feeling better. NGT was removed early this morning after she started passing bowel movements. Patient states her abdominal pain is much improved and is wondering if she can go home. Denies nausea. On review of small bowel xray contrast seen to go through bowel and on this morning's xray contrast noted in distal colon and rectum. Vital Signs Vital Signs Temp Pulse Resp BP Pulse Ox 99 F 96 H 20 130/73 94 08/15/18 06:41 08/15/18 04:00 08/15/18 06:41 08/15/18 06:41 08/15/18 06:41 Period Temp Pulse Resp BP Sys/Mayer Pulse Ox Last 24 Hr 98 F-99 F 96-105 16-20 112-151/71-90 93-98 Intake and Output 08/14/18 08/15/18 08/15/18 21:59 05:59 13:59 Intake Total 948 / 948 Output Total 1325 / 1325 660 / 660 550 / 550 Balance -1325 / -1325 288 / 288 -550 / -550 Weight 154 lb 8 oz PE: No distress. HEENT: sclera white, membranes moist Chest: clear bilaterally CV: regular rhythm, slightly tachy initially but this normalizes after she is resting in bed. ABD: Slightly distended which she reports is her baseline. Non tender to palpation and soft. EXT: warm, no edema. A/P: Radiation enteritis with recent episode of ileus vs PSBO--clinically resolving. Will start liquid diet and if tolerated can go home later today or in the a.m.
--- NOTE | 2018-08-15 15:46 | Transfer Summary ---
Transfer Discharge Sum: Prov Patient information: Note initiated : 08/15/18 at 3:41 pm Service Date, if different from initiated Date: [] Patient: Heavenly Ken 43 y/o F admitted on 08/13/18 for Abdominal Cramping /Small Bowel Obstruction. Chief Complaint: [] Date of admission: 08/13/18 22:50 Discharge Date: 08/15/18 Primary care physician: Romero Ba Admitting clinician: Cara Westfall Attending physician on admission: Cara Westfall Consults: 08/14/18 00:31 Consult to Physician [CONS] Routine Comment: Consulting Provider: Cara Westfall Reason For Exam: Physician to Consult Attending physician on discharge: Rebecca German Discharging clinician: Rebecca German Transfer Discharge Sum: Diag - Discharge Diagnosis (1) Adynamic ileus Status: Acute Transfer Discharge Sum: Med - Medications Active and Home Medications: Home Medications Fluticasone Propionate [Flonase] 1 spray NS DAILY 05/31/16 [History Confirmed ] fexofenadine 180 mg tablet 360 mg PO QDAY tab 09/13/16 [History Confirmed 08/14] fluticasone furoate 200 mcg/actuation blister powder for inhalation 200 mcg INHALATION QDAY 10/21/16 [History Confirmed 08/14/18] tiotropium 2.5 mcg-olodaterol 2.5 mcg/actuation mist for inhalation 2 inh INHALATION QDAY 10/21/16 [History Confirmed 08/14/18] acyclovir 400 mg tablet 400 mg PO BID #60 tab 07/02/17 [Rx Confirmed 08/14/18] Acetaminophen [Tylenol] 650 mg PO Q6HP PRN tab 08/12/17 [Rx Confirmed 08/14/18] Calcium Carbonate [Tums] 1,000 mg CHEWED Q4HP PRN 08/12/17 [Rx Confirmed ] Ibuprofen 800 mg PO TIDP PRN #30 tab 08/12/17 [Rx Confirmed 08/14/18] Opium/Belladonna Alkaloids [B & O] 30 mg OH Q4HP PRN #10 08/12/17 [Rx Confirmed 08/14/18] cholecalciferol (vitamin D3) 5,000 unit capsule 5,000 unit PO QDAY 02/20/18 [ History Confirmed 08/14/18] rifaximin 200 mg tablet 200 mg PO TID 02/20/18 [History Confirmed 08/14/18] vitamin B complex tablet 1 tab PO QDAY 02/20/18 [History Confirmed 08/14/18] Active Medications Acetaminophen (Tylenol) 650 mg PO Q6HP PRN PRN Reason: PAIN/FEVER > 101 Last Admin: 08/15/18 10:22 Dose: 650 mg Fluticasone Propionate (Flonase) 1 spray NS DAILY [facility] Last Admin: 08/15/18 10:25 Dose: Not Given Hydromorphone HCl (Dilaudid) 0.5 mg IV Q1HP PRN PRN Reason: PAIN LEVEL > 6 Last Admin: 08/15/18 02:34 Dose: 0.5 mg Metoclopramide HCl (Reglan) 10 mg IV Q6 [facility] Last Admin: 08/15/18 12:21 Dose: 10 mg Ondansetron HCl (Zofran) 4 mg IV Q6HP PRN PRN Reason: Nausea And Vomiting Last Admin: 08/15/18 00:05 Dose: 4 mg Fluticasone Furoate [Arnuity Ellipta] 200 Mcg Inhaler 1 dose INH QDAY [facility] Last Admin: 08/15/18 10:25 Dose: Not Given Tiotropium Br/Olodaterol Hcl [ Stiolto Respimat] Inhaler 2 dose INH QDAY [facility] Last Admin: 08/15/18 10:26 Dose: Not Given Promethazine HCl (Phenergan) 12.5 mg IV Q4HP PRN PRN Reason: Nausea And Vomiting Last Admin: 08/15/18 02:34 Dose: 12.5 mg Transfer Discharge Sum: Hosp Hospital course: Ms. Ken is a 43 year old F Patient was admitted on August 13, 2018 with symptoms of adynamic ileus and possible partial bowel obstruction. 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 Patient has had multiple episodes. On admission she was treated conservatively with NG tube decompression and bowel rest. Small bowel x-ray was performed showing transit of contrast throughout the intestine and colon. Her x-rays. Patient was noted to have contrast in the distal colon and rectum. Patient started passing stools last and night. NG tube was removed. Early this morning around 4 AM. She has had no further nausea or abdominal pain. She denies any emesis after taking in liquids today and denies any nausea. She has been drinking a full liquid diet throughout the day and has been passing stool and flatus. She is feeling well and back to regular baseline and feels ready to go home. - Time Spent with Patient Total time spent providing and/or coordinating transfer services: Transfer Discharge Sum: Exam - Constitutional Vitals: Vital Signs Temp Pulse Resp BP BP Pulse Ox 08/15/18 15:30 98.2 F 20 125/74 96 08/15/18 11:50 98.6 F 20 123/75 94 08/15/18 06:41 99 F 20 130/73 94 08/15/18 04:00 98.6 F 96 H 18 119/74 93 08/15/18 00:00 98.1 F 105 H 18 149/90 94 08/14/18 20:00 98.3 F 98 H 18 151/83 98 08/14/18 15:57 98.4 F 16 117/76 94 Intake and Output 08/15/18 08/15/18 08/15/18 05:59 13:59 21:59 Intake Total 948 / 948 400 / 400 Output Total 660 / 660 850 / 850 Balance 288 / 288 -850 / -850 400 / 400 Intake: IV 948 / 948 Lactated Ringers 1,000 ml @ 150 948 / 948 mls/hr IV .[id number] [facility] Rx#: [id number] Oral 400 / 400 Output: Gastric Drainage 10 / 10 Left Nare 10 / 10 Urine/Stool Mix 650 / 650 850 / 850 Other: Stool Size Moderate Stool Color Brown Brown Stool Consistency Liquid Liquid Loose Transfer Discharge Sum: Data Procedures and tests throughout hospitalization: Pending Orders 08/13/18 22:30 Admit as Inpatient Routine IV Insertion/Management NOW Notify Provider PRN Vital Signs Q4 HYDROmorphone [Dilaudid] 0.5 mg IV Q1HP PRN Ondansetron [Zofran] 4 mg IV Q6HP PRN 08/13/18 23:50 Promethazine [Phenergan] 12.5 mg IV Q4HP PRN 08/14/18 00:31 Consult to Physician [CONS] Routine RD to Adjust Diet/Supplements as Needed Routine 08/14/18 18:00 Metoclopramide [Reglan] 10 mg IV Q6 08/14/18 22:26 Communication order ONCE 08/14/18 22:27 Communication order ONCE 08/15/18 09:00 Fluticasone Propionate [Flonase] 1 spray NS DAILY Patients Own Medication 1 dose INH QDAY Patients Own Medication 2 dose INH QDAY 08/15/18 09:30 Full Liquid Diet 08/15/18 09:31 Acetaminophen [Tylenol] 650 mg PO Q6HP PRN Transfer Discharge Sum: A/P - Problem Maintenance (1) Adynamic ileus Assessment & Plan: Adynamic ileus, possible partial small bowel obstruction, resolved. History of radiation enteritis with multiple episodes of ileus. Patient is discharged home today with instructions to continue on a full liquid diet for the next 24-48 hours. She may advance to a low fiber, low residue diet , which is her baseline diet. She will continue follow-up with her rn social services regarding management of her radiation enteritis. She was instructed to return to the first department if she has any recurrence of symptoms. Status: Acute - Plan Overall status at transfer: patient is back to baseline Disposition: Home, Self-Care Quality Measure Queries - VTE Deep Vein Thrombosis/Pulmonary Embolism Present on Admission: No
== END 2018-08-15 16:20 | disposition home or self-care (01) | DRG 92 ==
LOC: ED 18:59 → MEDSUR 22:50
PROVIDERS: ADMIT Family Medicine Adult Medicine; ATTEND Surgery